=== PATIENT | female | born 1995 | race Caucasian/White ===

== ENCOUNTER 2025-06-09 13:00 | Emergency (ER) | payer SELFPAY ==
[~2025-06-09] VITALS: Ht 165.1 cm; Wt 80.0 kg
[2025-06-09 13:05] VITALS: O2SAT 99
[2025-06-09] MEDS: LIDOCAINE 5% PATCH TOP SCH (14:55)
[2025-06-09] MEDS ORDERED: IBUP-2028 MT (16:00)
[2025-06-09] MEDS ORDERED: LIDO-53 TP (16:01)
[2025-06-09] MEDS ORDERED: LIDOCAINE 5% PATCH TOP SCH (16:15)
[2025-06-09 16:19] VITALS: BP 140/80; PULSE 100; RESP 18; TEMP 37; O2SAT 99
[2025-06-09] MEDS: KETOROLAC 30MG/ML VIAL IM ONE (16:31)
== END 2025-06-09 16:33 | disposition home or self-care (01) ==
LOC: ER 13:00
DX: M54.2 Cervicalgia (principal); I10 Essential (primary) hypertension
CPT/HCPCS: 81025; 72040; 73030; 96372; 99284; J1885; Z7610